=== PATIENT | male | born 2005 | race Caucasian/White ===

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

== ENCOUNTER 2025-03-26 23:25 | Emergency (ER) | payer MEDICAID ==
[~2025-03-26] VITALS: Ht 172.7 cm; Wt 56.2 kg
[~2025-03-26 23:25] MED LIST: HYDR-4001 MT; KETO10TA2 MT
[2025-03-26 23:37] VITALS: O2SAT 100
[2025-03-26 23:55] VITALS: BP 111/65; PULSE 61; RESP 18; TEMP 37; O2SAT 100
[2025-03-27 00:51] LABS: PLATELET 191 x1000/uL (130-400); RED BLOOD CELL COUNT 4.53 mill/uL (4.7-6.1); RED CELL DISTRIBUTION WIDTH 13.3 % (11.6-14.6)
[2025-03-27 01:02] LABS: CLARITY URINE CLEAR (CLEAR); COLOR URINE YELLOW (YELLOW); GLUCOSE URINE NEGATIVE (NEGATIVE); KETONES URINE 1+ (NEGATIVE); LEUKOCYTE ESTERASE URINE 1+ (NEGATIVE); NITRITE URINE NEGATIVE (NEGATIVE); OCCULT BLOOD URINE 3+ (NEGATIVE); PH URINE 5.0 (4.5-8.0); PROTEIN URINE TRACE (NEGATIVE); SPECIFIC GRAVITY URINE 1.019 (1.005-1.030); UROBILINOGEN URINE 0.2 E.U./dL (0.2-1.0)
[2025-03-27 01:05] LABS: CREATININE 0.9 mg/dL (0.6-1.3); UREA NITROGEN BLOOD 8 mg/dL (9-23)
[2025-03-27] MEDS: KETOROLAC 15MG/ML VIAL IM ONE (01:10)
[2025-03-27 01:16] LABS: WBC URINE 0-2 /hpf (0-2)
[2025-03-27 01:17] LABS: BACTERIA URINE TRACE; RBC URINE 15-25 /hpf (0-2); SQUAMOUS EPITHELIAL CELL URINE FEW /lpf (RARE/1+)
[2025-03-27 01:30] LABS: PROTEIN TOTAL 7.0 g/dL (6.0-8.3)
[2025-03-27 01:32] LABS: ASPARTATE AMINOTRANSFERASE 63 IU/L (<34); BILIRUBIN DIRECT 0.2 mg/dL (<=3.0); BILIRUBIN TOTAL 0.7 mg/dL (0.1-1.0)
[2025-03-27] MEDS ORDERED: TAMS-54 MT (02:50)
[2025-03-27] MEDS ORDERED: NAPR-1176 MT (02:50)
== END 2025-03-27 03:07 | disposition home or self-care (01) ==
LOC: ER 23:25
DX: N20.0 Calculus of kidney (principal); Z79.1 Long term (current) use of non-steroidal anti-inflammatories (NSAID)
CPT/HCPCS: 36415; 99285; 80076; 80048; 81003; 83690; 85027; 74176; 96372; J1885; Z7610